=== PATIENT | female | born 1940 | race Caucasian/White ===

== ENCOUNTER → 2020-09-23 | Outpatient (CLI) | payer MEDICARE, OTHER ==
[~2020-09-23] MED LIST: ALBU90OI61 INH; AMLO5 PO; AMOCLA875 PO; ASPI325B PO; ASPI81EC PO; Antivert25 MG PO; CALMAGZIN PO; CHOL10002 PO; CODGUAEL PO; CYAN1000 PO; DIPH50 PO; EZET10; FISH1000 PO; GARLIQUE; GLUC500 PO; GUAI600ER PO; HYDMOR2 PO; HYDRO EYE; LEVE500 PO; LEVSOD100; LEVSOD75 PO; LEVSOD88 PO; LISI5 PO; LIVALO1 MG PO; MAGNESIUM-ZINC; MECL25 PO; METO25 PO; METO25ER PO; NEBI5 PO; OMEG1CAP30 PO; OMEP10ER; OMEP20ER PO; OMEPRAZOLE MAGN20 MG PO; ONDA4 PO; ONDA4ODT MM; OXYACE5T PO; OXYM.05NI; POTASSIUM GLUC500 MG PO; PROBIOTIC-DIGE1 EACH PO; PROC25S PR; PSEU30; PYRI100 PO; Prednisone10 MG PO; RANEXA PO; RANI150; RANO500T PO; SODCHL1 PO; TICA90TA PO; TRAM50 PO; [UNRECOGNIZED DRUG - OTHER]
== END | disposition home or self-care (01) ==
LOC: LAB 10:09 → LAB SHORT 10:09
DX: D48.5 Neoplasm of uncertain behavior of skin (principal)
CPT/HCPCS: 88305

== ENCOUNTER → 2020-11-12 | Outpatient (CLI) | payer MEDICARE, OTHER ==
[2020-11-12 10:59] LABS: Source, Urine Clean Catch
[2020-11-12 13:06] LABS: Appearance, Urine Clear (Clear); Bilirubin, Urine Neg (Neg); Blood, Urine Neg (Neg); Color, Urine Yellow (P-Yellow); Glucose Qualitative, Urine Neg (Neg); Ketones, Urine Neg (Neg); Leukocyte Esterase, Urine Neg (Neg); Nitrite, Urine Neg (Neg); Protein, Urine Neg (Neg); Urobilinogen, Urine NORM (Normal)
== END | disposition home or self-care (01) ==
LOC: LAB SHORT 10:00
PROVIDERS: Nurse Practitioner Family
DX: I10 Essential (primary) hypertension (principal); R53.1 Weakness
CPT/HCPCS: 81003; 82043

== ENCOUNTER 2021-11-10 10:37 | Inpatient (IN) | payer MEDICARE, OTHER ==
[~2021-11-10] VITALS: Ht 162.6 cm; Wt 63.0 kg
[~2021-11-10 10:37] MED LIST changes: +EUTHYROX50 MCG PO; -FISH1000 PO; +OMEGA-3 FISH O1 EAC6 PO
[2021-11-10 11:01] LABS: Hemoglobin 13.9 g/dL (11.5-16.0); Mean Corpuscular HGB 29.7 pg (26.0-34.0); Mean Corpuscular HGB Conc 33.1 g/dL (31.5-36.5); Mean Corpuscular Volume 90 fL (80-100); Mean Platelet Volume 9.4 fL (9.1-12.4); NRBC ABSOLUTE 0.03 K/mm3 (0.00-0.02); NRBC Auto 0.3 /100 WBC (0.0-0.2); Platelet Count 249 K/mm3 (150-400); RDW Coefficient Variation 12.9 % (11.7-14.2); RDW Standard Deviation 42.5 fL (35.1-46.3); Red Blood Cell Count 4.68 M/mm3 (3.80-5.20)
[2021-11-10] MEDS ORDERED: ATOR40TA PO (11:09)
[2021-11-10] MEDS ORDERED: ELIQUIS2.5 M1 PO (11:09)
[2021-11-10] MEDS ORDERED: LOSARTAN POTAS100 MG PO (11:12)
[2021-11-10] MEDS ORDERED: MAG-OXIDE MAGN200 MG PO (11:13)
[2021-11-10 11:19] LABS: International Normalized Ratio 0.99; Prothrombin Time Results 10.4 Sec (9.7-11.5)
[2021-11-10 11:27] LABS: Alanine Aminotransfer (ALT/SGP 20 U/L (12-78); Albumin, Blood 3.6 g/dL (3.4-5.0); Albumin/Globulin Ratio 1.1 (0.8-1.8); Alk Phos 93 U/L (50-136); Anion Gap 10 mmol/L (6-16); Aspartate Aminotrans (AST/SGOT 19 U/L (12-37); Bilirubin, Total 0.7 mg/dL (0.1-1.0); Blood Urea Nitrogen 15 mg/dL (8-24); Bun/Creatinine Ratio 15.6 (12.0-20.0); CHOL/HDL RATIO 3.5; CO2, Blood 24 mmol/L (21-32); Calcium, Blood 9.9 mg/dL (8.5-10.1); Chloride, Blood 103 mmol/L (98-108); Cholesterol 149 mg/dL (50-200); Creatinine, Blood 0.96 mg/dL (0.40-1.00); Globulin, Blood 3.3 g/dL (2.2-4.0); Glomerular Filtration Rate 59 (60-); Glucose, Blood 152 mg/dL (70-99); HDL Cholesterol 42 mg/dL (>39); Low Density Lipoprotein Chol 42 mg/dL (0-110); Magnesium, Blood 2.1 mg/dL (1.6-2.4); Potassium, Blood 4.1 mmol/L (3.5-5.5); Sodium, Blood 137 mmol/L (136-145); Total Protein, Blood 6.9 g/dL (6.4-8.2); Triglycerides 323 mg/dL (30-160); Very Low Density Lipoprot Chol 64 mg/dL (6-32)
[2021-11-10 12:06] LABS: BAND PERCENT MAN 1 % (0-8); BASOPHILS PERCENT MAN 0 % (0-2); EOSINOPHILS ABSOLUTE MAN 0.23 K/mm3 (0.00-0.68); EOSINOPHILS PERCENT MAN 2 % (0-6); LYMPHOCYTES PERCENT MAN 40 % (21-46); MONOCYTES ABSOLUTE MAN 0.57 K/mm3 (0.16-1.47); MONOCYTES PERCENT MAN 5 % (4-13); NEUTROPHILS ABSOLUTE MAN 6.09 K/mm3 (1.96-9.15); SEG NEUTROPHILS PERCENT MAN 52 % (41-73); TOTAL CELLS COUNTED 100
--- NOTE | 2021-11-10 14:50 | NUR ---
ADMIT: Patient arrived to PCU via gurney and was able to stand and transfer to the bed with assistance. She is alert and oriented, but forgetful-she is not able to remember the name of her residence which is an assisted living facility. She denies pain at this time, but states she is slightly nauseated-she is refusing nausea medication. HRR, SR in the 60s, she has some ST elevation noted in lead 3 and AVR. She states she was getting ready to eat breakfast this morning and, "it felt like my heart exploded." Pt states this is different from her previous heart attacks. 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 LS CTA, Biox 100% on RA. BT+, abd non-tedner to light palpation. PPP. VSS. History obtained from daughter via phone. When I discussed code status with patient she verbalizes wanting to be DNR, per daughter POLST states DNR status. Call placed to [facility] to obtain copy of POLST. Patient is oriented to the room and the call light. Call light in reach.
[2021-11-10] MEDS ORDERED: PANT20 PO (17:48)
[2021-11-10] MEDS ORDERED: EUTHYROX50 MCG PO (17:48)
--- NOTE | 2021-11-10 17:56 | NUR ---
Summary: Patient arrived from the ED via gurney to PCU 19, she was able to transfer to the bed independently. She states while she was making her breakfast this morning she felt like her, "chest exploded." Thus she was brought to the ED. She has denied chest pain or SOB for me. She C/O nausea but refused medications. HRR, SB in the 50s-st depression noted on telemetry-MD aware. LS CTA, Biox 100% pn RA. BT+. She was able to ambulate with SBA to the bathroom. VSS. Admission history completed with the assistance from the daughter-crow AMANDA. Hep 3700 unit bolus given, gtt started at 15u/kg/hr. Troponins went from 9-19,384- cardiology following. Plan for possible angiogram in the morning. Patient denies other needs at this time. Call light in reach. Will report to SUSAN JACQUES.
[2021-11-11 00:27] LABS: Hematocrit 38.1 % (33.0-51.0); Hemoglobin 12.7 g/dL (11.5-16.0); Mean Corpuscular HGB Conc 33.3 g/dL (31.5-36.5); Mean Corpuscular Volume 90 fL (80-100); Mean Platelet Volume 9.2 fL (9.1-12.4); Platelet Count 217 K/mm3 (150-400); RDW Standard Deviation 42.5 fL (35.1-46.3); Red Blood Cell Count 4.24 M/mm3 (3.80-5.20); White Blood Cell Count 10.24 K/mm3 (4.00-11.30)
[2021-11-11 02:36] LABS: Bun/Creatinine Ratio 19.5 (12.0-20.0); Creatinine, Blood 0.77 mg/dL (0.40-1.00); Potassium, Blood 3.9 mmol/L (3.5-5.5)
--- NOTE | 2021-11-11 06:29 | NUR ---
SHIFT SUMMARY NO ACUTE CHANGES THIS SHIFT. PT ALERT, FOLLOWS COMMANDS, USES CALL LIGHT. DAUGHTER IN ROOM AT START OF SHIFT. SP02>90% ON RA. VSS. UP TO BATHROOM 1 PERSON ASSIST TO VOID AND HAVE BM. DENIED PAIN. PT PARTICULAR. HAD DIFFICULT TIME RESTING/GETTING COMFORTABLE. HEPARIN INFUSING PER EMAR. FLUIDS INFUSING PER EMAR. MD MURRAY IN ROOM THIS EVENING TO TALK ABOUT NEXT DAY PROCEDURE, ALSO CALLED DAUGHTER TO EXPLAIN PROCEDURE. CALL LIGHT IN REACH.
--- NOTE | 2021-11-11 09:02 | NUR ---
NURSING PCU DAYSHIFT: Assumed care of pt at approx 0700. A/O at this time though reported forgetfulness, very pleasant and cooperative w/care. Denies any pain/discomfort at rest. Skin is dry/fragile, no breakdown noted. Mild general weakness, able to ambulate w/SBA. Tele in place, NSR w/BBB, SBP 133 prior to a.m. meds, no current c/o CP/pressure, no noted edema. L/S cta t/o, denies dyspnea, c/o occ dry/DRIVER SERVICE TECHNICIAN cough, O2 sat upper 90's on RA. PIV x2, NS infusing at 75cc/hr, hep gtt as dosed per pharmacy. No s/s of acute distress at this time. Seen by PMDs, plan for angiogram this afternoon. NPO this a.m. after breakfast. Family currently at bedside, call light in reach, cont to monitor for any changes.
--- NOTE | 2021-11-11 15:44 | NUR ---
Upon receiving a spiritual care referral, I visit patient. Patient talks at length about her divorce, her family and her medical issues. She expresses her concern about up coming angiogram. She also is very energetic as she tells me about her Judaism brenda and how she feels that she talks to God and He talks to her. She finds great peace and strength from her prayers and reading the Bible. I provide therapeutic listening, recitation of Scripture and prayer for her upcoming procedure. Pt verbalizes appreciation for the prayer and care given. She shows signs of increased peace. I will cotinue to remian avialble to patient and family.
--- NOTE | 2021-11-11 16:27 | NUR ---
NURSING PCU DAYSHIFT SUMMARY: No significant changes noted t/o the shift. VS remained stable, no c/o CP/pressure, no reported dyspnea. NS and hep gtt continue to infuse as ordered. Pt has remained NPO for anticipated angiogram this afternoon. Daughter at bedside t/o majority of the shift, plan of care discussed and questions answered. Pt denies any current needs at this time. Call light in reach, cont to monitor until rpt is given to accepting RN.
--- NOTE | 2021-11-12 05:55 | NUR ---
SHIFT SUMMARY PT ALERT AND ORIENTED X4. HR SR 60'S. AFEBRILE. BP STABLE. HEP GTT INFUSING. NS INFUSING AT 75ML/HR. ONE EPISODE OF INCONTINENCE, WOKE UP CONFUSED AND UNSURE OF WHERE SHE WAS. OTHERWISE CONTINENT AND SBA FOR ADL'S. DENIES CHEST PAIN. IN BED SLEEPING WITH CALL ALARM AT SIDE, WILL CONTINUE TO MONITOR UNTIL REPORT GIVEN TO DAYSHIFT RN
--- NOTE | 2021-11-12 09:49 | NUR ---
CARE ASSUMPTION THIS RN ASSUMED CARE AT 0700 FROM LAURO JACQUES. PATIENT IS ALERT AND ORIENTED X4. MARBELLA IS FORGETFUL AT TIMES, AND WILL REPEAT HERSELF THROGHOUT THIS RN INTERACTIONS WITH THE PATIENT. PERRLA. PATIENT IS A ONE PERSON STAND BY ASSIST. PATIENT REPORTS NO PAIN. PATIENT REPORTS NO CHEST PAIN/PRESSURE. VSS. TELE SR BBB 65. PATIENT HAS STRONG RADIAL AND PEDIS PULSES. NO EDEMA NOTED. PATIENT REPROTS NO SHORTNESS OF BREATH. DIM LUNG SOUNDS ON ROOM AIR. PATIENT ABD IS SOFT NONTENDER AND ACTIVE. SKIN IS CLEAR DRY AND INTACT. SEE SHIFT ASSESSMENT FOR FURTHER DETAILS. MD ROJAS AND NATA IN TO SEE PATIENT THIS AM. THEY WENT OVER PLAN OF CARE. IN A PERVIOUS PROGRRESS REPORT THERE IS DISCUSSION OF CHANGING CODE STATUS. MARBELLA DAUGHTER, WHO IS POA, IS AT BEDSIDE AND THEY DO NOT WANT TO CHANGE HER CODE STATUS, THEY WANT HER TO REMAIN A DNR. BOTH I DISCUSSED THIS WITH HER AND MD PEACE. PATIENT REMAINS NPO FOR ANGIO TODAY. PATIENT HAS HEPARIN INFUSING AT 10U/KG/HR. NS AT 75MLS/HR. PATIENT HAS CALL LIGHT WITHIN REACH. PLAN OF CARE DISCUSSED WITH BOTH PATIENT AND PATIENT DAUGHTER AND IS UP TO DATE.
--- NOTE | 2021-11-12 17:11 | NUR ---
shift summary patient neuro remains intact. no acute changes. vss. patient is to be medically managed after discussion with aerosol supervisor md amaya, this am due to patient not wanting to be a full code during the procedure. family is up to date on plan of care. family has been in and out throughout the day. patient is in no distress. report to kiko morrell, call light within reach, and plan of care up to date.,
--- NOTE | 2021-11-12 21:37 | NUR ---
ASSUMED CARE OF PATIENT AT APPROXIMATELY 1905 FROM ALEJANDRO Lazaro RN. PATIENT ALERT AND ORIENTED; FORGETFUL AT TIMES; PATIETN FORGETS NAMES AND FORGETS CONVERSATION MID SENTENCE AT TIMES. PATIENT REPORTS PAIN IN BACK FROM BED; WARM BLANKET GIVEN AND CALLED DR. Iveth CHAUDHARY; ORDERS FOR PRN TYLENOL. PATIENT REPORTS WARM BLANKET HELPED WITH BACK TIGHTNESS. PATIENT DENIES CHEST PAIN, NUMBNESS, TINGLING, DIZZINESS, OR NAUSEA. SR ON TELE; OXYGEN SATURATION ABOVE 90% ON ROOM AIR. PIV X2 S/L. PATIENT ONE ASSIST TO BATHROOM; SOME WEAKNESS NOTED; PATIENT REPORTS SHORTNESS OF BREATH AFTER GETTING BACK INTO BED; NEEDED ASSISTANCE GETTING BACK INTO BED AND BOOSTED.
[2021-11-13 04:06] LABS: BASOPHILS ABSOLUTE AUTO 0.04 K/mm3 (0.00-0.23); BASOPHILS PERCENT AUTO 0 % (0-2); EOSINOPHILS ABSOLUTE AUTO 0.14 K/mm3 (0.00-0.68); EOSINOPHILS PERCENT AUTO 1 % (0-6); Hematocrit 38.1 % (33.0-51.0); Hemoglobin 12.7 g/dL (11.5-16.0); IMMATURE GRAN ABSOLUTE AUTO 0.04 K/mm3 (0.00-0.10); IMMATURE GRAN PERCENT AUTO 0 % (0-1); LYMPHOCYTES ABSOLUTE AUTO 2.61 K/mm3 (0.84-5.20); LYMPHOCYTES PERCENT AUTO 26 % (21-46); MONOCYTES ABSOLUTE AUTO 0.82 K/mm3 (0.16-1.47); MONOCYTES PERCENT AUTO 8 % (4-13); Mean Corpuscular HGB 29.7 pg (26.0-34.0); Mean Corpuscular HGB Conc 33.3 g/dL (31.5-36.5); Mean Corpuscular Volume 89 fL (80-100); Mean Platelet Volume 9.6 fL (9.1-12.4); NEUTROPHILS ABSOLUTE AUTO 6.23 K/mm3 (1.96-9.15); NEUTROPHILS PERCENT AUTO 63 % (41-73); Platelet Count 220 K/mm3 (150-400); RDW Coefficient Variation 13.3 % (11.7-14.2); RDW Standard Deviation 43.3 fL (35.1-46.3); Red Blood Cell Count 4.28 M/mm3 (3.80-5.20); White Blood Cell Count 9.88 K/mm3 (4.00-11.30)
[2021-11-13 04:30] LABS: Bilirubin, Total 1.2 mg/dL (0.1-1.0); Bun/Creatinine Ratio 11.1 (12.0-20.0); Calcium, Blood 8.7 mg/dL (8.5-10.1); Creatinine, Blood 0.72 mg/dL (0.40-1.00); Globulin, Blood 3.1 g/dL (2.2-4.0); Potassium, Blood 3.7 mmol/L (3.5-5.5); Total Protein, Blood 6.1 g/dL (6.4-8.2)
--- NOTE | 2021-11-13 06:41 | NUR ---
PATIENT SLEPT ABOUT SEVEN HOURS LAST NIGHT. NO ACUTE CHANGES TO REPORT.
--- NOTE | 2021-11-13 09:26 | NUR ---
CARE ASSUMPTION THIS RN ASSUMED CARE FROM HENRIQUE Odonnell RN AT 0700. VSS. TELE SR 70S. SPO2 >90% ON RA. PATIENT IS ALERT AND ORIENTED X4. FORGETFUL, SUCH NOT REMEMBER THE NAMES OF STAFF, REPEATING SELF STATING THE SAME STORY MULTIPLE TIMES, AND NEEDING REMINDERS TO USE CALL LIGHT. USES CALL LIGHT APPROPRIATELY AND CALLS BEFORE GETTING OUT OF BED. PATIENT REPROTS NO PAIN, BUT STATED OVER THE NIGHT SHE HAD SOME BACK PAIN FROM THE BED. PATIENT REPORTS NO SHORTNESS OF BREATH. CLEAR UPPER LOBES, DIM LOWER LOBES. PATIENT REPROTS NO CHEST PAIN/PRESSURE. CAP REIFLL <3SECONDS. FAINT RADIAL PULSES AND STRONG PEDIS. NO EDEMA NOTED. PATIENT SKIN IS COOL FARGILE CLEAN DRY AND INTACT. PATIENT ABD IS SOFT NONTENDER AND ACTIVE. PATIENT TRANSFERS A STAND BY ASSIST, BUT PATIENT LIKES TO HOLD A HAND WHEN WALKING TO BATHROOM. SEE SHIFT ASSESSMENT FOR FURTHER DETAILS. MD FLOR IN TO SEE PATIENT THIS AM. PATIENT MADE IT KNOWN THAT SHE WANTED TO GO HOME TO HER "[facility] BED". PLAN IS FOR PATIENT TO DISCHARGE BACK TO [facility], WHERE SHE LIVES, THIS AFTERNOON. AWAITING DISCHARGE ORDERS. PATIENT EDUCATED ON PLAN OF CARE AND MEDICATIONS THIS AM. MORNING ADLS DONE. PATIENT TAKES MEDICATIONS ONE AT A TIME WITH WATER, WITH NO ISSUES. CALL LIGHT WITHIN REACH AND BED IN LOWEST POSITION. PLAN OF CARE UP TO DATE. PER UNIT PROTOCOL WILL CONTINUE HOURLY ROUNDING AND PROVIDE CARE.
[2021-11-13] MEDS ORDERED: CLOP75 PO (13:19)
[2021-11-13] MEDS ORDERED: METO25 PO (13:20)
--- NOTE | 2021-11-13 13:28 | NUR ---
Spoke with Primary RN Madison and discussed case. Pt elected to not pursue PCI and wants medical management. Pt to possibly D/C back to [facility] today. Reviewed chart. Pt resting in bed upon arrival. Pt denies pain and dyspnea at this time. Pt is quite pleasant and expresses her wishes to return home today. Brief gentle discussion regarding advanced care planning and the option to consider hospice in the future. Brief and gentle education on hospice philosophy. Offered therapeutic listening as Pt discusses her family and the pride she has with their accomplishments. Pt does not appear to be interested in futher conversation regarding goals of care and continues to discuss family life. Continued active listening. Pt expresses appreciation and reports no concerns at this time. Palliative Care will remain available.
--- NOTE | 2021-11-13 14:21 | NUR ---
DISCHARGE THIS RN WENT OVER DISCHARGE EDUCATION WITH THE PATIENT AND PROVIDED EDUCATIONAL HANDOUTS. THIS RN WENT OVER THE NEW MEDICATION PLAVIX AND METOPORLOL THE PATIENT WOULD BE TAKING. THEY WERE FAXED TO [facility] AND RECEIVED CONFIRMATION OF FAX. THIS RN IN ADDITION TO EDUCATING THE PATIENT CALLED THE DAUGHTER AND EDUCATED THE DAUGHTER ON NEW MEDICATIONS AND THE FOLLOW UP APPOINTMENTS. PATIENT DAUGHTERJESSICA VERBALIZED UNDERSTANDING. PATIENT VERABLIZED UNDERSTANDING OF PATIENT FOLLOW UP APPOINTMENT ON October AT 1505. ALL PAPER WORK AND BELONGINGS WITH PATIENT. PATIENT LEFT VIA SUNSHINE TAXI THAT WAS ARRANAGED BY CARE MANAGEMENT BACK TO HER HOME AT [place]. PATIENT WAS IN NO DISTRESS WHEN LEAVING AND LEFT APPROX 1415.
== END 2021-11-13 14:15 | disposition home health service (06) | DRG 281 ==
LOC: ER 10:37 → PCU 13:41
PROVIDERS: Nurse Practitioner Acute Care; Student in an Organized Health Care Education/Training Program; ADMIT Internal Medicine
DX: I21.4 Non-ST elevation (NSTEMI) myocardial infarction (principal); I50.32 Chronic diastolic (congestive) heart failure; E03.9 Hypothyroidism, unspecified; I25.110 Atherosclerotic heart disease of native coronary artery with unstable angina pectoris; I11.0 Hypertensive heart disease with heart failure; F03.90 Unspecified dementia, unspecified severity, without behavioral disturbance, psychotic disturbance, mood disturbance, and anxiety; E78.00 Pure hypercholesterolemia, unspecified; Z66 Do not resuscitate; K21.9 Gastro-esophageal reflux disease without esophagitis; G40.909 Epilepsy, unspecified, not intractable, without status epilepticus; Z88.8 Allergy status to other drugs, medicaments and biological substances; Z88.5 Allergy status to narcotic agent; Z95.1 Presence of aortocoronary bypass graft; Z91.018 Allergy to other foods; Z79.82 Long term (current) use of aspirin; Z79.899 Other long term (current) drug therapy; Z79.891 Long term (current) use of opiate analgesic; I25.2 Old myocardial infarction; Z95.5 Presence of coronary angioplasty implant and graft; Z90.710 Acquired absence of both cervix and uterus; Z98.890 Other specified postprocedural states; Z87.891 Personal history of nicotine dependence; Z79.02 Long term (current) use of antithrombotics/antiplatelets; Z79.01 Long term (current) use of anticoagulants; Z88.1 Allergy status to other antibiotic agents
CPT/HCPCS: 36415; 71045; 80048; 80053; 80061; 83735; 84484; 85025; 85027; 85610; 85730; 86850; 86900; 86901; 93005; 93010; 93306; 99285-25; A9270; J1644; J7030; J7040

== ENCOUNTER → 2023-02-25 | Outpatient (CLI) | payer MEDICARE, OTHER ==
[~2023-02-25] MED LIST changes: +ATOR40TA PO; +CLOP75 PO; +ELIQUIS2.5 M1 PO; +LOSARTAN POTAS100 MG PO; +MAG-OXIDE MAGN200 MG PO; +PANT20 PO
[2023-02-25 16:48] LABS: Appearance, Urine Clear (Clear); Bilirubin, Urine Neg (Neg); Blood, Urine Neg (Neg); Color, Urine Yellow (P-Yellow); Glucose Qualitative, Urine Neg (Neg); Ketones, Urine Neg (Neg); Leukocyte Esterase, Urine Neg (Neg); Nitrite, Urine Neg (Neg); Protein, Urine Neg (Neg); Specific Gravity, Urine 1.005 (1.003-1.022); Urobilinogen, Urine NORM (Normal)
== END ==
LOC: LAB 13:15 → LAB SHORT 13:15
PROVIDERS: Family Medicine
DX: N39.0 Urinary tract infection, site not specified (principal)
CPT/HCPCS: 81003

== ENCOUNTER 2024-12-03 12:23 | Emergency (ER) | payer OTHER ==
[~2024-12-03] VITALS: Ht 160 cm; Wt 59.0 kg
[2024-12-03 13:15] LABS: BASOPHILS ABSOLUTE AUTO 0.03 K/mm3 (0.00-0.23); BASOPHILS PERCENT AUTO 0 % (0-2); EOSINOPHILS ABSOLUTE AUTO 0.06 K/mm3 (0.00-0.68); EOSINOPHILS PERCENT AUTO 1 % (0-6); Hematocrit 35.0 % (33.0-51.0); Hemoglobin 11.9 g/dL (11.5-16.0); IMMATURE GRAN ABSOLUTE AUTO 0.01 K/mm3 (0.00-0.10); IMMATURE GRAN PERCENT AUTO 0 % (0-1); LYMPHOCYTES ABSOLUTE AUTO 3.40 K/mm3 (0.84-5.20); LYMPHOCYTES PERCENT AUTO 45 % (21-46); MONOCYTES ABSOLUTE AUTO 0.69 K/mm3 (0.16-1.47); MONOCYTES PERCENT AUTO 9 % (4-13); Mean Corpuscular HGB Conc 34.0 g/dL (31.5-36.5); Mean Corpuscular Volume 88 fL (80-100); NEUTROPHILS ABSOLUTE AUTO 3.40 K/mm3 (1.96-9.15); NEUTROPHILS PERCENT AUTO 45 % (41-73); NRBC ABSOLUTE 0.00 K/mm3 (0.00-0.02); NRBC Auto 0.0 /100 WBC (0.0-0.2); Platelet Count 219 K/mm3 (150-400); RDW Coefficient Variation 13.8 % (11.7-14.2); RDW Standard Deviation 44.4 fL (35.1-46.3)
[2024-12-03 14:00] LABS: Alanine Aminotransfer (ALT/SGP 25.0 U/L (12-78); Albumin, Blood 3.4 g/dL (3.4-5.0); Albumin/Globulin Ratio 0.9 (0.8-1.8); Anion Gap 10.0 mmol/L (3-11); Aspartate Aminotrans (AST/SGOT 29.0 U/L (12-37); Bilirubin, Total 0.9 mg/dL (0.1-1.0); Blood Urea Nitrogen 13.0 mg/dL (8-24); CO2, Blood 26.0 mmol/L (21-32); Calcium, Blood 8.8 mg/dL (8.5-10.1); Chloride, Blood 102.0 mmol/L (98-108); Creatinine, Blood 0.91 mg/dL (0.40-1.00); Globulin, Blood 3.7 g/dL (2.2-4.0); Glucose, Blood 116.0 mg/dL (70-99); Potassium, Blood 4.3 mmol/L (3.5-5.5); Sodium, Blood 134.0 mmol/L (136-145); Total Protein, Blood 7.1 g/dL (6.4-8.2)
[2024-12-03 17:24] VITALS: BP 175/99
== END 2024-12-03 17:58 | disposition home or self-care (01) ==
LOC: ER 12:23
PROVIDERS: Student in an Organized Health Care Education/Training Program
DX: I11.0 Hypertensive heart disease with heart failure (principal); I50.30 Unspecified diastolic (congestive) heart failure; I25.2 Old myocardial infarction; E78.5 Hyperlipidemia, unspecified; I25.119 Atherosclerotic heart disease of native coronary artery with unspecified angina pectoris; K21.9 Gastro-esophageal reflux disease without esophagitis; E03.9 Hypothyroidism, unspecified; Z66 Do not resuscitate; Z88.5 Allergy status to narcotic agent; Z88.0 Allergy status to penicillin; Z88.8 Allergy status to other drugs, medicaments and biological substances; Z79.01 Long term (current) use of anticoagulants; Z79.899 Other long term (current) drug therapy; Z79.890 Hormone replacement therapy
CPT/HCPCS: 80053; 83735; 84484; 85025; 93005; 93010; 99284-25